=== PATIENT | female | born 1965 | race Caucasian/White ===

== ENCOUNTER 2024-09-06 18:30 | Emergency (ER) | payer BC ==
--- NOTE | 2024-09-06 20:14 | RAD REPORT ---
EXAMINATION: ONE VIEW CHEST XR CLINICAL INDICATION: CHEST PAIN TECHNIQUE: Frontal chest projection is submitted. Examination is limited by patient positioning and t echnique. COMPARISON: No prior exam. FINDINGS: Mild pulmonary edema is present. The heart is moderately enlarged in size. No displaced fractures tre ntified. IMPRESSION: Mild CHF suspected.
[2024-09-06 21:20] LABS: PT Prothrombin Time 13.2 SECONDS (9.4-12.5); Protime INR 1.18
[2024-09-06 21:23] LABS: Absolute Eosinophils 0.1 K/uL (0-0.5); Absolute Lymphocytes (CBC) 2.7 K/uL (0.7-4.9); Absolute Monocytes 0.7 K/uL (0.1-1.3); Absolute Neutrophil 6.5 K/uL (1.8-8.0); Basophils % 0.4 % (0-1.3); Eosinophils % 1.3 % (0-4.4); Hematocrit 40.6 % (36.0-45.0); Hemoglobin 13.3 g/dL (12.0-15.0); Lymphocytes % 26.9 % (15.3-44.8); MCH 27.3 pg (27.0-35.0); MCHC 32.8 g/dL (32.0-36.0); MCV 83.2 fL (80-100); MPV 7.8 fL (7.6-11.3); Monocytes % 6.8 % (3.3-12.3); Neutrophils % 64.6 % (41.7-73.7); Nucleated Red Blood Cells % 0.2 % (0-0); Platelets 287 thou/uL (152-406); RBC Red Blood Cell Count 4.88 M/uL (3.86-4.86); Red Cell Distribution Width 16.4 % (12.1-15.2)
[2024-09-06 21:35] LABS: Anion Gap 7.5 mEq/L (5.0-15.0); Magnesium 1.4 mg/dL (1.6-2.4); Potassium 3.5 mEq/L (3.5-5.1)
[2024-09-06] MEDS ORDERED: MAGNESIUM SULFATE 1 gm IVPB 1 GM/100 ML BAG IV ONE (22:12)
--- NOTE | 2024-09-07 00:27 | EDPHYS ---
Physician Documentation [facility] Name: Hernandez Tripathi Age: 59 yrs Sex: Female : 1965 Arrival Date: 09/06/2024 Time: 18:30 Bed 19 Private MD: ED Physician Sony Gu HPI: 09/06 21:02 This 59 yrs old Female presents to ER via Ambulatory with complaints of Heart ec2 palpitations. 21:02 Patient arrives today for evaluation of palpitations. Reports she has a history of ec2 atrial fibrillation, on anticoagulation. Patient reports that she felt palpitations throughout the day which is what prompted evaluation. Patient states that she is normally in sinus rhythm and not in A-fib. No chest pain, no difficulty breathing.. Historical: - Allergies: 18:54 No Known Allergies; ap3 - PMHx: 18:54 Atrial fibrillation; Hypertensive disorder; ap3 - Immunization history:: Client reports having NOT received the Covid vaccine. Flu vaccine is up to date. - Infectious Disease History:: Denies. - Social history:: Smoking status: Patient reports the use of cigarette tobacco products, smokes one pack cigarettes per day. ROS: 21:02 Constitutional: as per hpi ec2 Exam: 21:02 Constitutional: GEN: NAD Head: atraumatic Eyes: EOMI Ears: External ears are ec2 normal. CV: regular rate LUNGS: no respiratory distress ABD: non-distended SKIN: no evidence of rashes MSK: no evidence of trauma Vital Signs: 18:53 BP 113 / 72; Pulse 60; Resp 18; Temp 98.6; Pulse Ox 95% on R/A; Weight 122.92 kg; ap3 Height 5 ft. 5 in. ; Pain 0/10; 21:18 BP 139 / 87; Pulse 54; Resp 17; Pulse Ox 98% on R/A; rg5 22:30 BP 127 / 81; Pulse 53; Resp 18; Pulse Ox 97% on R/A; rg5 23:15 BP 123 / 72; Pulse 55; Resp 17; Pulse Ox 98% on R/A; rg5 09/07 00:30 BP 125 / 74; Pulse 55; Resp 17 S; Pulse Ox 97% on R/A; rg5 09/06 18:53 Body Mass Index 45.10 (122.92 kg, 165.1 cm) ap3 09/06 18:53 Pain Scale: Adult ap3 MDM: 09/06 19:01 Medical Screening Exam initiated ec2 19:18 ED course: EKG independently reviewed and interpreted by me, shows normal sinus rhythm, ec2 rate of 54, no acute ST segment elevations, intervals are nonactionable.. 21:02 Data reviewed: vital signs, nurses notes. ED course: Patient arrives today for ec2 evaluation of palpitations. Examination is revealing for well-appearing nontoxic individuals otherwise in no acute distress. Will obtain lab work, chest x-ray. Patient signed out with pending lab work and reassessment.. 21:59 Counseling: I had a detailed discussion with the patient and/or guardian regarding lab pm1 results, radiology results, Will correct Mg level and reevaluate the patient. 09/07 00:27 Counseling: I had a detailed discussion with the patient and/or guardian regarding the pm1 historical points, exam findings, and any diagnostic results supporting the discharge/admit diagnosis, lab results, radiology results, the need for outpatient follow up, a director product development, to return to the emergency department if symptoms worsen or persist or if there are any questions or concerns that arise at home. 09/06 19:02 Order name: Basic Metabolic Panel; Complete Time: 21:52 ec2 09/06 19:02 Order name: CBC with Diff; Complete Time: 21:33 ec2 09/06 19:02 Order name: Magnesium; Complete Time: 21:52 ec2 09/06 19:02 Order name: NT PRO-BNP; Complete Time: 21:52 ec2 09/06 19:02 Order name: PT-INR; Complete Time: 21:33 ec2 09/06 19:02 Order name: Troponin HS; Complete Time: 21:52 ec2 09/06 19:02 Order name: XRAY Chest (1 view); Complete Time: 20:31 ec2 09/06 19:02 Order name: EKG; Complete Time: 19:02 ec2 09/06 19:02 Order name: Cardiac monitoring; Complete Time: 21:10 ec2 09/06 19:02 Order name: EKG - Nurse/Tech; Complete Time: 19:20 ec2 09/06 19:02 Order name: IV Saline Lock; Complete Time: 21:10 ec2 09/06 19:02 Order name: Labs collected and sent; Complete Time: 21:10 ec2 09/06 19:02 Order name: O2 Per Protocol; Complete Time: 21:10 ec2 09/06 19:02 Order name: O2 Sat Monitoring; Complete Time: 21:10 ec2 Administered Medications: 09/06 22:28 Drug: Magnesium Sulfate IVPB 1 grams IVPB once over 1 hrs Route: IVPB; Infused Over: 1 rg5 hrs; Site: right antecubital; 23:40 Follow up: IV Status: Completed infusion; IV Intake: 100ml rg5 Disposition Summary: 09/07/24 00:26 Discharge Ordered Notes: Location: Home pm1 Problem: new pm1 Symptoms: have improved pm1 Condition: Stable pm1 Diagnosis - Palpitations pm1 Followup: ec2 - With: Private Physician - When: - Reason: Recheck today's complaints Discharge Instructions: - Discharge Summary Sheet ec2 - Palpitations ec2 Forms: - Medication Reconciliation Form pm1 - Antibiotic Education pm1 - Prescription Opioid Use pm1 - Patient Portal Instructions pm1 - Leadership Thank You Letter pm1 Signatures: Dispatcher [employer] Abdoulaye Amaya, FLORIN AIRBRUSH ARTIST pm1 Sofiya Contreras RN RN ap3 Sony Gu MD MD ec2 Aman Freire RN RN rg5
--- NOTE | 2024-09-07 00:27 | ER ---
Nurse's Notes [facility] Name: Hernandez Tripathi Age: 59 yrs Sex: Female : 1965 Arrival Date: 09/06/2024 Time: 18:30 Bed 19 Private MD: Diagnosis: Palpitations Presentation: 09/06 18:53 Chief complaint: Patient states: she started having palpitations at approx 0900 this ap3 morning. patient denies any chest pain or shortness of breath. Coronavirus screen: At this time, the client does not indicate any symptoms associated with coronavirus-19. Ebola Screen: No symptoms or risks identified at this time. Initial Sepsis Screen: Does the patient meet any 2 criteria? No. Patient's initial sepsis screen is negative. Does the patient have a suspected source of infection? No. Patient's initial sepsis screen is negative. Risk Assessment: Do you want to hurt yourself or someone else? Patient reports no desire to harm self or others. Onset of symptoms was September 06, 2024 at 09:00. 18:53 Method Of Arrival: Ambulatory ap3 18:53 Acuity: NATALIE 2 ap3 Triage Assessment: 18:55 General: Appears in no apparent distress. Behavior is calm, cooperative, appropriate ap3 for age. Pain: Denies pain. Neuro: Level of Consciousness is awake, alert, obeys commands, Oriented to person, place, time, situation. Cardiovascular: Reports palpitations, Patient's skin is warm and dry. Respiratory: Airway is patent Respiratory effort is even, unlabored, Respiratory pattern is regular, symmetrical. Historical: - Allergies: 18:54 No Known Allergies; ap3 - PMHx: 18:54 Atrial fibrillation; Hypertensive disorder; ap3 - Immunization history:: Client reports having NOT received the Covid vaccine. Flu vaccine is up to date. - Infectious Disease History:: Denies. - Social history:: Smoking status: Patient reports the use of cigarette tobacco products, smokes one pack cigarettes per day. Screenin:55 [facility] ED Fall Risk Assessment (Adult) History of falling in the last 3 months, ap3 including since admission No falls in past 3 months (0 pts) Confusion or Disorientation No (0 pts) Intoxicated or Sedated No (0 pts) Impaired Gait No (0 pts) Mobility Assist Device Used No (0 pt) Altered Elimination No (0 pt) Score/Fall Risk Level 0 - 2 = Low Risk Oriented to surroundings, Maintained a safe environment, Educated pt \T\ family on fall prevention, incl call for assistance when getting out of bed, Assessed \T\ reinforced patient's understanding of fall precautions, Hourly rounding (assess needs \T\ fall precautionary measures) done, Used ambulatory aids as needed (educated on \T\ assisted with), Used gait belt as appropriate. Abuse screen: Denies threats or abuse. Nutritional screening: No deficits noted. Tuberculosis screening: No symptoms or risk factors identified. Assessment: 21:30 General: Appears in no apparent distress. Behavior is calm, cooperative, appropriate rg5 for age. 21:30 Pain: Denies pain. Neuro: Level of Consciousness is awake, alert, obeys commands, rg5 Oriented to person, place, time. Cardiovascular: Reports palpitations, Patient's skin is warm and dry. Respiratory: Airway is patent Trachea midline Respiratory effort is even, unlabored. GI: Abdomen is round obese. : No signs and/or symptoms were reported regarding the genitourinary system. EENT: No deficits noted. Derm: Skin is intact, Skin is dry, Skin is normal. Musculoskeletal: Circulation, motion, and sensation intact. Range of motion: intact in all extremities. 22:30 Reassessment: Patient and/or family updated on plan of care and expected duration. Pain rg5 level reassessed. Patient is alert, oriented x 3, equal unlabored respirations, skin warm/dry/pink. 23:40 Reassessment: Patient and/or family updated on plan of care and expected duration. Pain rg5 level reassessed. Patient is alert, oriented x 3, equal unlabored respirations, skin warm/dry/pink. 09/07 00:30 Reassessment: Patient and/or family updated on plan of care and expected duration. Pain rg5 level reassessed. Patient is alert, oriented x 3, equal unlabored respirations, skin warm/dry/pink. Patient denies pain at this time. Patient states feeling better. Vital Signs: 09/06 18:53 BP 113 / 72; Pulse 60; Resp 18; Temp 98.6; Pulse Ox 95% on R/A; Weight 122.92 kg; ap3 Height 5 ft. 5 in. ; Pain 0/10; 21:18 BP 139 / 87; Pulse 54; Resp 17; Pulse Ox 98% on R/A; rg5 22:30 BP 127 / 81; Pulse 53; Resp 18; Pulse Ox 97% on R/A; rg5 23:15 BP 123 / 72; Pulse 55; Resp 17; Pulse Ox 98% on R/A; rg5 09/07 00:30 BP 125 / 74; Pulse 55; Resp 17 S; Pulse Ox 97% on R/A; rg5 09/06 18:53 Body Mass Index 45.10 (122.92 kg, 165.1 cm) ap3 12 18:53 Pain Scale: Adult ap3 ED Course: 09/06 18:33 Patient arrived in ED. ra3 18:53 EKG done, by ED staff. ap3 18:54 Triage completed. ap3 18:56 Arm band placed on right wrist. ap3 19:01 Sony Gu MD is Attending Physician. ec2 20:01 XRAY Chest (1 view) In Process Unspecified. EDMS 20:29 Aman Freire, LORETTA is Primary Nurse. rg5 20:58 Abdoulaye Curiel NP is PHCP. pm1 21:30 No provider procedures requiring assistance completed. Inserted saline lock: 22 gauge rg5 in left forearm, using aseptic technique. Blood collected. Flushed with 10 mL NS. 21:30 Patient has correct armband on for positive identification. Call light in reach. Side rg5 rails up X 1. Door closed. Noise minimized. Verbal reassurance given. 09/07 00:30 IV discontinued, bleeding controlled, No redness/swelling at site. Pressure dressing rg5 applied. 00:30 Provided Education on: POST ER CARE. rg5 Administered Medications: 09/06 22:28 Drug: Magnesium Sulfate IVPB 1 grams IVPB once over 1 hrs Route: IVPB; Infused Over: 1 rg5 hrs; Site: right antecubital; 23:40 Follow up: IV Status: Completed infusion; IV Intake: 100ml rg5 Medication: 21:30 VIS not applicable for this client. rg5 Intake: 23:40 IV: 100ml; Total: 100ml. rg5 Outcome: 09/07 00:26 Discharge ordered by . pm1 00:30 Discharged to home ambulatory, rg5 00:30 Condition: stable 00:30 Discharge instructions given to patient, Instructed on discharge instructions, follow up and referral plans. Demonstrated understanding of instructions, follow-up care, 00:53 Patient left the ED. rg5 Signatures: Dispatcher [employer] Abdoulaye Amaya NP STOVE POLISHER pm1 Sofiya Contreras, RN RN ap3 Sony Gu MD MD ec2 Monika Hughes ra3 Aman Freire RN RN rg5
[2024-09-07 01:13] VITALS: TEMP 98.6
[2024-09-07 01:18] VITALS: BP 125/74; O2SAT 97
--- NOTE | 2024-09-08 15:49 | EKG ---
Test Date: 2024-09-06 Test Time: 18:51:51 Hydraulic Billet Maker: ALP MEASUREMENT RESULTS: Intervals: Rate: 54 CA: 162 QRSD: 92 QT: 418 QTc: 396 [place]: P: 63 CA: 162 QRS: 9 T: 32 INTERPRETIVE STATEMENTS: Sinus bradycardia Otherwise normal ECG No previous ECG available for comparison Electronically Signed On 09-08-24 15:47:26 CRAYON GRADER by Efraín Bishop
== END 2024-09-07 00:53 | disposition home or self-care (01) ==
LOC: ER 18:30
DX: R00.2 Palpitations (principal); I48.11 Longstanding persistent atrial fibrillation; Z79.01 Long term (current) use of anticoagulants
CPT/HCPCS: 96365; 93005; 85025; 80048; 36415; 83735; 85610; 84484; 83880; 71045; 99284; J3475